=== PATIENT | female | born 1980 | race Hispanic/Latino ===

== ENCOUNTER 2021-02-05 16:32 | Emergency (ER) | payer OTHER ==
[~2021-02-05] VITALS: Ht 165.1 cm; Wt 127.0 kg
[2021-02-05] MEDS ORDERED: KETOROLAC TROMETHAMINE 30 MG/ML VIAL IV STA (18:13)
[2021-02-05] MEDS ORDERED: DIAZEPAM 5 MG TAB PO ONE (18:15)
[2021-02-05] MEDS ORDERED: NAPROSYN500 MG PO (18:20)
[2021-02-05] MEDS ORDERED: CYCLOBENZAPRINE5 MG PO (18:20)
[2021-02-05 18:40] VITALS: BP 135/72
== END 2021-02-05 18:41 | disposition home or self-care (01) ==
LOC: ER 16:39
DX: S06.0X0A Concussion without loss of consciousness, initial encounter (principal); S16.1XXA Strain of muscle, fascia and tendon at neck level, initial encounter; V89.2XXA Person injured in unspecified motor-vehicle accident, traffic, initial encounter; Y92.411 Interstate highway as the place of occurrence of the external cause
CPT/HCPCS: 70450; 72125; 99283